=== PATIENT | female | born 1955 | race Caucasian/White ===

== ENCOUNTER → 2021-09-02 | Outpatient (CLI) | payer MEDICARE, OTHER ==
[2021-09-02 09:36] LABS: HCT 44.2 % (34.0-46.0); HGB 14.5 gm/dL (11.4-16.0); MCH 31.2 pg (25.0-35.0); MCHC 32.7 g/dL (31.0-37.0); MCV 95.2 fL (80.0-100.0); Platelet Count 299 k/uL (150-450); RBC 4.64 m/uL (3.80-5.40); RDW 11.8 % (11.5-15.5); WBC 6.4 k/uL (3.8-10.6)
[2021-09-02 09:45] LABS: Partial Thromboplastin Time 23.5 sec (22.0-30.0); Prothrombin Time 10.6 sec (9.0-12.0)
[2021-09-02 10:10] LABS: Albumin 4.3 g/dL (3.5-5.0); Calcium 9.9 mg/dL (8.4-10.2); Potassium 4.3 mmol/L (3.5-5.1); Total Bilirubin 0.7 mg/dL (0.2-1.3); Total Protein 7.4 g/dL (6.3-8.2)
[2021-09-02 10:18] LABS: Appearance,Urine Clear (Clear); Bilirubin,Urine Negative (Negative); Blood,Urine Negative (Negative); Color,Urine Colorless; Glucose,Urine (UA) Negative (Negative); Ketones,Urine Negative (Negative); Leukocyte Esterase,Urine Negative (Negative); Nitrite,Urine Negative (Negative); PH, Urine 6.5 (5.0-8.0); Protein,Urine Negative (Negative); Specific Gravity,Urine 1.005 (1.001-1.035); Urobilinogen,Urine <2.0 mg/dL (<2.0)
== END | disposition home or self-care (01) ==
LOC: LABWHC1 08:46
PROVIDERS: ATTEND Orthopaedic Surgery
DX: Z01.812 Encounter for preprocedural laboratory examination (principal); M16.12 Unilateral primary osteoarthritis, left hip; Z79.01 Long term (current) use of anticoagulants
CPT/HCPCS: 36415; 80053; 81003; 85027; 85610; 85730

== ENCOUNTER 2021-09-13 12:17 | Day surgery (SDC) | payer MEDICARE, OTHER ==
[2021-09-10 14:23] VITALS: BMI 25.4
[~2021-09-13 12:17] MED LIST: ACETAMINOPHEN TAB 500 MG TAB PO PRN; DEXAMETHASONE SOD PHOSPHATE 10 MG/ML 1 ML VIAL IV PRN; DOCUSATE 100 MG CAP PO PRN; FAMOTIDINE 20 MG/2 ML VIAL IVP PRN; KETOROLAC 15 MG/ML 1 ML VIAL IVP PRN; KETOROLAC 30 MG/ML 1 ML VIAL IVP PRN; MIDAZOLAM 2 MG/2 ML VIAL IV PRN; ONDANSETRON 4 MG/2 ML VIAL IVP PRN; TRANEXAMIC ACID 1,000 MG in SODIUM CHLORIDE 0.9% 100 ML IVPB PRN; VANCOMYCIN 1,000 MG in SODIUM CHLORIDE 0.9% 250 ML IVPB PRN; fentaNYL (PF) 50 MCG/ML 2 ML AMP IV PRN; oxyCODONE ER 10 MG TAB.ER.12H PO PRN
[2021-09-13] MEDS: LACTATED RINGERS 1,000 ML IV SCH (12:42)
[2021-09-13] MEDS ORDERED: KETOROLAC 30 MG/ML 1 ML VIAL ONE ×2 (12:47→16:09)
[2021-09-13] MEDS ORDERED: fentaNYL (PF) 50 MCG/ML 2 ML AMP ONE (13:14)
[2021-09-13] MEDS ORDERED: LABETALOL 5 MG/ML VIAL MDV ONE (13:14)
[2021-09-13] MEDS ORDERED: TRANEXAMIC ACID 1,000 MG/10 ML VIAL ONE (13:14)
[2021-09-13] MEDS ORDERED: MIDAZOLAM 2 MG/2 ML VIAL ONE (13:14)
[2021-09-13] MEDS ORDERED: PHENYLEPHRINE-0.9% NACL SYG 1,000 MCG/10 ML SYRINGE ONE (13:14)
[2021-09-13] MEDS ORDERED: NEOSTIGMINE 1 MG/ML 10 ML VIAL ONE (13:14)
[2021-09-13] MEDS ORDERED: PROPOFOL 10 MG/ML 20 ML VIAL IV ONE (13:14)
[2021-09-13] MEDS ORDERED: LIDOCAINE 1% INJ 10MG/ML (20 ML MDV) ONE (13:14)
[2021-09-13] MEDS ORDERED: SUCCINYLCHOLINE CHLORIDE 100 MG/5 ML SYR IV ONE (13:14)
[2021-09-13] MEDS ORDERED: GLYCOPYRROLATE 0.2 MG/ML 2 ML VIAL ONE (13:14)
[2021-09-13] MEDS ORDERED: SODIUM CHLORIDE 0.9% 100 ML BAG ONE (13:14)
[2021-09-13] MEDS ORDERED: ROCURONIUM 10 MG/ML (5 ML VIAL) IV ONE (13:14)
[2021-09-13] MEDS ORDERED: TRANEXAMIC ACID 1,000 MG in SODIUM CHLORIDE 0.9% 100 ML IVPB ONE (13:30)
[2021-09-13] MEDS ORDERED: ROPIVACAINE/EPI/CLONIDINE/KET 50 ML SYRINGE MISCELLANE PRN (13:53)
[2021-09-13] MEDS ORDERED: ceFAZolin 3,000 MG in SODIUM CHLORIDE 0.9% IRRIGATIO 3,000 ML IRRIGATION ONE (15:27)
[2021-09-13] MEDS ORDERED: HYDROmorphone 0.5 MG/0.5 ML SYRINGE IVP PRN ×2 (15:39)
[2021-09-13] MEDS ORDERED: HYDROcodone/APAP 5-325MG 1 EACH TAB PO PRN (15:39)
[2021-09-13] MEDS ORDERED: HYDROmorphone 0.2 MG/1 ML SYRINGE IVP PRN (15:39)
[2021-09-13] MEDS ORDERED: hydrOXYzine pamoate 25 MG CAP PO PRN (15:39)
[2021-09-13] MEDS ORDERED: ONDANSETRON 4 MG/2 ML VIAL IVP PRN (15:39)
[2021-09-13] MEDS ORDERED: NALOXONE 0.4 MG/ML 1 ML VIAL IV PRN (15:39)
[2021-09-13] MEDS ORDERED: LACTATED RINGERS 1,000 ML IV ONE (15:40)
[2021-09-13] MEDS ORDERED: HYDROmorphone 0.5 MG/0.5 ML SYRINGE IVP ONE ×2 (16:10→16:40)
[2021-09-13] MEDS ORDERED: KETOROLAC 15 MG/ML 1 ML VIAL IVP ONE (16:12)
--- NOTE | 2021-09-13 16:36 | P.OP ---
Date of Procedure: 09/13/21 Preoperative Diagnosis: Left hip arthritis Postoperative Diagnosis: Left hip arthritis Procedure(s) Performed: Left direct anterior total hip arthroplasty Implants: 1. [place] Trident II 48-mm cup 2. [place] Accolade II size #4 high offset stem 3. Biolox Delta 36-mm, +0 head Anesthesia: CRISTIA Surgeon: Kana Rodriguez Agricultural Services Director #1: Casimiro Vincent Estimated Blood Loss (ml): 150 IV fluids (ml): 1,200 Pathology: none sent Condition: stable Disposition: PACU Indications for Procedure: The patient is a very pleasant previously healthy 66-year-old female with a long-standing history of left hip arthritis. She failed over 1 year of nonsurgical treatment and presented to my office with severe left hip arthritis on x-rays. We discussed continued nonsurgical treatment versus a direct anterior total hip replacement. The patient having failed a long course of nonsurgical treatment requested going forward with surgery. We discussed the potential risks and competitions of surgery including but certainly not limited to risks from anesthesia, superficial infection, deep periprosthetic joint infection, intraoperative fracture, postoperative fracture, damage to blood vessels or nerves particularly the lateral femoral cutaneous nerve, leg length discrepancy, hip instability, thigh pain, groin pain, tendinitis, need for further surgery, need for revision surgery, continued or worsened pain, DVT, PE, other medical complications, and inability to regain preinjury level of function, and possibly loss of life or limb. The patient voiced understanding these potential complications and also acknowledges the possibility of other less common complications. She provided her verbal and written consent to go forward with surgery. Description of Procedure: Patient identified in preoperative holding and the correct left leg was marked with my initials. I reviewed the consent form with the patient and all of her questions were answered. The patient was then brought back to the operating room. She was positioned on the gurney and a general anesthetic, preoperative antibiotics, and tranexamic acid was given. The skin over the left hip was shaved removing all hair. Her legs were felt to be 1-2 mm short on the left operative side. Web roll was placed over both ankles and the boots for the hand table were applied. The patient was then carefully transferred onto a hand table. She was carefully positioned and all bony prominences were well-padded. A timeout was performed identifying the correct patient, operative extremity, and procedure. Preoperative imaging was taken including an AP pelvis with the hips externally rotated to create a bi-ischial bar to use as an intraoperative referenceto gauge changes in leg length and offset. The left leg was then prepped and draped in the standard sterile fashion. I began by making a longitudinal incision for a direct anterior approach to the hip. Skin incision with a scalpel and dissection was carried down carefully to the subcutaneous tissue. The fascia over the tensor was sharply incised in line with the skin incision. I bluntly developed the interval between the tensor and the sartorius. A blunt tipped cobra was placed superior to the femoral neck. The deep fascia of the tensor was incised and the circumflex vessels were controlled with bipolar sealant. Pre-capsular fat was excised and a second Cobra was placed inferior to the femoral neck. The rectus was elevated off of the anterior capsule and a sharp Hohmann retractor was placed over the anterior acetabulum. The capsule was then teed and the Cobra retractors were placed intracapsularly. A neck cut was marked out and verified with fluoroscopy. A sagittal saw was used to create the neck cut. Traction was applied to the table and the femoral head was removed with a corkscrew. It was passed off to the back table and sized at 45 mm. It appeared severely arthritic. The acetabulum was then circumferentially exposed. Osteophytes were removed. The labrum was excised. The pulp and are was removed identifying the cotyloid fossa. The acetabulum appeared severely arthritic. I then sequentially reamed down to the medial wall and then the rim until a bleeding cancellus bony bed was achieved. Both the anterior and posterior wall were intact. The wound was thoroughly irrigated and a 48 mm cup was gently impacted using fluoroscopy to fine-tune version and inclination. The cup had an excellent bite was augmented with a single screw. The cup was irrigated and a liner was gently tapped into place. Attention was then turned to the femur. Traction was released on the table and the remaining capsule was released to allow safe elevation of the femur. Retractors were placed circumferentially. A box osteotome and blunt tipped canal sound were used to gain entrance into the canal. The patient's bone quality appeared good and I decided to proceed with a press-fit stem. I then sequentially broached up to a size 4 which felt stable. There was an excellent, tight broach envelope. A calcar planar was used to bring the neck cut flush to the broach in line with our templating. A trial head was placed, retractors were removed and the hip was reduced. Fluoroscopy was used to assess position of both the broach and changes in leg length and offset. Once we were happy with our manipulations the hip was dislocated. The femur was once again elevated and retractors were placed. The canal was thoroughly irrigated after the broach was removed. There was an excellent tight broach envelope. The final stem was carefully impacted until it was fully seated and had a tight fit. There was no evidence of any fracture. A final 36 mm +0 head was gently impacted onto the trunnion until the Rodriguez taper was engaged. The acetabulum was irrigated and found to be free of any debris. The hip was reduced and found to be stable on the hand table. Final fluoroscopic images were taken. The wound was then thoroughly irrigated with 3 L of sterile saline and a dilute Betadine soaked for 3 minutes. All bleeders were controlled. A deep drain was placed. The wound was then closed using barbed monofilament sutures creating a watertight seal and closure. The skin was reinforced with Dermabond. A second dose of TXA and was given. A sterile silver a dressing was applied followed by a drain sponge. All instrument, sponge, and sharp counts were correct. Drapes were taken down and the patient was carefully transferred onto a gurney. The Esther table boots were removed and the leg lengths felt equal to 1 mm long on the operative side in line with our planning. The patient was then brought to recovery having tolerated the procedure well. Casimiro Luong PA-C was required as a skilled workforce development assistant due to the complexity of the surgery. Plan: The patient can weight-bear as tolerated on her left leg. She'll receive 2 doses of postoperative antibiotics. Her drain can be removed tomorrow. We will treat her with aspirin for DVT prophylaxis. I anticipate discharge home tomorrow morning.
--- NOTE | 2021-09-13 16:49 | XR ---
EXAMINATION TYPE: XR Hip Complete LT, FL guidance operating room DATE OF EXAM: 09/13/2021 COMPARISON: NONE HISTORY: 66-year-old female total left hip replacement FINDINGS: 8 intraoperative images during left hip total arthroplasty. FLUOROSCOPY Fluoroscopy time of 41 seconds was used during anterior total left hip replacement. 8 image/s docume nt/s the procedure. IMPRESSION: Intraoperative fluoroscopy as above.
[2021-09-13] MEDS ORDERED: ONDANSETRON 4 MG/2 ML VIAL IVP ONE (16:51)
[2021-09-13] MEDS ORDERED: diphenhydrAMINE 50 MG/ML 1 ML VIAL ONE (17:09)
[2021-09-13] MEDS ORDERED: diphenhydrAMINE 50 MG/ML 1 ML VIAL IVP ONE (17:18)
[2021-09-13] MEDS: ASPIRIN 81 MG PO SCH (19:56)
[2021-09-13] MEDS ORDERED: SENNOSIDES-DOCUSATE SODIUM 1 EACH TAB PO SCH (21:00)
[2021-09-14] MEDS: HYDROcodone/APAP 5-325MG 1 EACH TAB PO PRN ×2 (00:26→12:17)
[2021-09-14] MEDS: LACTATED RINGERS 1,000 ML IV SCH (08:42)
[2021-09-14] MEDS: ASPIRIN 81 MG PO SCH (08:43)
[2021-09-14 09:09] VITALS: BP 106/66; PULSE 77; RESP 18; TEMP 98.6
--- NOTE | 2021-09-14 09:31 | P.DS ---
Providers Date of admission: 09/13/2021 Expected date of discharge: 09/14/21 Attending physician: Kana Rodriguez Consults: 09/13/21 15:46 Consult Physician Routine Consulting Provider: Vick Gates Reason/Comments: medical management Do you want consulting provider notified?: Yes Primary care physician: Macey Day - Discharge Diagnosis(es) (1) Osteoarthritis of left hip Current Visit: Yes Status: Acute (2) Status post total hip replacement, left Current Visit: Yes Status: Acute (3) Left hip pain Current Visit: Yes Status: Acute Hospital Course: This is a pleasant 66-year-old female who presented with left hip arthritis who failed outpatient conservative therapy. She was admitted for a left direct anterior total hip arthroplasty. The patient tolerated the procedure well and did well postoperatively. Her left hip pain has been well-controlled. She's been able to ambulate to the restroom the assistance of a walker. Her drain at the left hip had 50 mL of drainage last night. Drain has been removed. Patient feels she is progressing well postoperatively and is ready for discharge home today. Condition on day of discharge stable. Patient was cleared preoperatively for surgery by Dr. Day. Patient currently denies any nausea, vomiting, fever, or chills. Patient is eating and voiding freely without -difficulty. Patient may shower Optifoam dressing intact. Patient may remove Optifoam dressing in 7-10 days and shower without a dressing at that time. Take medications as prescribed. Patient may weight-bear as tolerated on the left lower extremity with use of walker. MAPS was previously reviewed. An "Opiod Start Talking" Form has been signed and placed in the patient's chart. A prescription has been written for Linwood 5 mg/325 mg 1 tablet every 6 hours as needed for pain, dispensed #30. Patient is also given prescription for aspirin 81 mg 1 tab twice a day, dispensed #60 for anticoagulation. Patient should take this prescription until completion. Patient is also given prescriptions for docusate, omeprazole, and Voltaren. Prescriptions have been sent to the [facility] pharmacy located within [facility]. Physical Exam on day of discharge: Status post surgical day number 1 Patient is examined sitting bedside upright in a chair Patient is awake and alert, and oriented 3 Vital signs stable Good chest excursion with deep inspiration and expiration Abdomen soft nontender No signs or symptoms of DVT; no calf pain Lower extremity cuffs not currently in place bilaterally Dressing of the left hip is clean, dry, and intact; no erythema, purulence, or signs of infection Full range of motion of ankles bilaterally Dorsiflexion, plantarflexion, and extensor hallucis longus positive sustained bilaterally Neurovascularly intact bilateral lower extremities Capillary refill less than 2 seconds bilateral lower extremities Drain at the left hip is removed during physical examination Procedures: Left direct anterior total hip arthroplasty Patient Condition at Discharge: Stable Plan - Discharge Summary Discharge Rx Participant: No New Discharge Prescriptions: New HYDROcodone/APAP 5-325MG [Linwood 5-325] 1 tab PO Q6HR PRN 7 Days #30 tab PRN Reason: Pain Aspirin 81 mg PO BID 30 Days #60 tab Docusate [Colace] 100 mg PO BID 30 Days #60 cap Omeprazole 40 mg PO DAILY 30 Days #30 cap Diclofenac Sodium [Voltaren] 75 mg PO BID 30 Days #60 tab No Action Inulin/Chromium Picolinate [Fiber Gummies Chew] 1 tab PO DAILY Ibuprofen [Motrin Ib] 200 - 400 mg PO Q6H PRN PRN Reason: Pain Multivitamins, Thera [Multivitamin (formulary)] 1 tab PO DAILY Krill Oil 500 mg PO DAILY Vitamin B Complex 1 each PO DAILY Cholecalciferol [Vitamin D3 (25 Mcg = 1000 Iu)] 25 mcg PO DAILY Ascorbic Acid/Elderberry Fruit [Elderberry-Vit C 50-100 mg Chw] 1 tab PO DAILY Ascorbic Acid [Vitamin C] 500 mg PO DAILY Mupirocin 2% Oint [Bactroban 2% Oint] 1 applic NASAL TID Discharge Medication List Ascorbic Acid [Vitamin C] 500 mg PO DAILY 09/10/21 [History] Ascorbic Acid/Elderberry Fruit [Elderberry-Vit C 50-100 mg Chw] 1 tab PO DAILY 09/10/21 [History] Cholecalciferol [Vitamin D3 (25 Mcg = 1000 Iu)] 25 mcg PO DAILY 09/10/21 [History] Ibuprofen [Motrin Ib] 200 - 400 mg PO Q6H PRN 09/10/21 [History] Inulin/Chromium Picolinate [Fiber Gummies Chew] 1 tab PO DAILY 09/10/21 [History] Krill Oil 500 mg PO DAILY 09/10/21 [History] Multivitamins, Thera [Multivitamin (formulary)] 1 tab PO DAILY 09/10/21 [History] Mupirocin 2% Oint [Bactroban 2% Oint] 1 applic NASAL TID 09/10/21 [History] Vitamin B Complex 1 each PO DAILY 09/10/21 [History] Aspirin 81 mg PO BID 30 Days #60 tab 09/13/21 [Rx] Diclofenac Sodium [Voltaren] 75 mg PO BID 30 Days #60 tab 09/13/21 [Rx] Docusate [Colace] 100 mg PO BID 30 Days #60 cap 09/13/21 [Rx] HYDROcodone/APAP 5-325MG [Linwood 5-325] 1 tab PO Q6HR PRN 7 Days #30 tab 09/13/21 [Rx] Omeprazole 40 mg PO DAILY 30 Days #30 cap 09/13/21 [Rx] Follow up Appointment(s)/Referral(s): Kana Rodriguez MD [Medical Doctor] - 2 Weeks Activity/Diet/Wound Care/Special Instructions: Weight bear as tolerated on operative leg with a walker. Keep Optifoam dressing in place for 7-10 days. Take pain medications as prescribed. Take aspirin 81mg BID for 4 weeks for blood clot prevention. Follow-up in the office in [address] Rodriguez. Call the office with any questions or concerns, Discharge Disposition: HOME WITH HOME HEALTH SERVICES
--- NOTE | 2021-09-14 15:30 | P.CONS ---
History of Present Illness - Reason for Consult Consult date: 09/14/21 Medical management Requesting physician: Kana Rodriguez - Chief Complaint Left hip surgery - History of Present Illness This is a pleasant 66-year-old patient of Dr. Macey Day. Chronic stable medical conditions include mild GERD, osteoarthritis, occasional urinary incontinence. Patient has undergone left total hip arthroplasty. Patient's pain is better active and she stands up. Did walk around a bit in the room with a walker. No nausea vomiting. Did tolerate her breakfast. No cardiac history. at the bedside. Review of systems: GEN.: None EYES: None HEENT: None NECK: None RESPIRATORY: None CARDIOVASCULAR: None GASTROINTESTINAL: Occasional GERD GENITOURINARY: Occasional UI MUSCULOSKELETAL: Joint pains LYMPHATICS: None HEMATOLOGICAL: None PSYCHIATRY: None NEUROLOGICAL: None Past medical history to include: Ostomy that is, some GERD, UI Social history: . Smoked for 12 years 1 pack a day stopped 14 years ago. Alcohol rarely. Family history: Stroke Physical examination: VITAL SIGNS: 98.6, 77, 18, 10 6 x 66, 93% room air GENERAL: BMI 25.4, sitting up awake. EYES: Pupils equal. Conjunctiva normal. HEENT: External appearance of nose and ears normal, oral cavity grossly normal. NECK: JVD not raised; masses not palpable. HEART: First and second heart sounds are normal; no edema. LUNGS: Respiratory rate normal; clear to auscultation. ABDOMEN: Soft, nontender, liver spleen not palpable, no masses palpable. PSYCH: Alert and oriented x3; mood and affect normal. MUSCULAR skeletal: Dressing over the left hip. Evidence of OA in several joints. NEUROLOGICAL: Cranial nerves grossly intact; no facial asymmetry, power and sensation grossly intact. LYMPHATICS: No lymph nodes palpable in the axilla and neck INVESTIGATIONS, reviewed in the clinical context: Coronavirus: [not detected] [Labs from 09/02/2021]: WBC 6.4 hemoglobin 14.5 platelets 299 potassium 4.3 creatinine 0.8 Assessment and plan: -Left total hip arthroplasty. Aspirin for DVT prophylaxis. Friant for pain control per orthopedics. -Occasional GERD Prilosec 40 mg daily -Primary osteoarthritis multiple joints bilaterally voltaren 75 mg twice a day per orthopedics Care was discussed with the patient has been. Aspirin for DVT prophylaxis. Pain control increased. Activity as tolerated. Follow-up with PCP about discharge. Thank you Dr. Rodriguez Past Medical History Past Medical History: Osteoarthritis (OA) History of Any Multi-Drug Resistant Organisms: None Reported Past Surgical History: Section, Hysterectomy Additional Past Surgical History / Comment(s): Ant TLH 09/13/21 Past Anesthesia/Blood Transfusion Reactions: No Reported Reaction Past Psychological History: No Psychological Hx Reported Smoking Status: Former smoker Past Alcohol Use History: Rare Additional Past Alcohol Use History / Comment(s): quit smoking 14 yrs. ago, smoked for 12 yrs. 1ppd Past Drug Use History: None Reported - Past Family History Mother Family Medical History: CVA/TIA Medications and Allergies Home Medications Medication Instructions Recorded Confirmed Type Ascorbic Acid [Vitamin C] 500 mg PO DAILY 09/10/21 09/10/21 History Ascorbic Acid/Elderberry Fruit 1 tab PO DAILY 09/10/21 09/10/21 History [Elderberry-Vit C 50-100 mg Chw] Cholecalciferol [Vitamin D3 (25 25 mcg PO DAILY 09/10/21 09/10/21 History Mcg = 1000 Iu)] Inulin/Chromium Picolinate [Fiber 1 tab PO DAILY 09/10/21 09/10/21 History Gummies Chew] Krill Oil 500 mg PO DAILY 09/10/21 09/10/21 History Multivitamins, Thera [Multivitamin 1 tab PO DAILY 09/10/21 09/10/21 History (formulary)] Mupirocin 2% Oint [Bactroban 2% 1 applic NASAL TID 09/10/21 09/10/21 History Oint] Vitamin B Complex 1 each PO DAILY 09/10/21 09/10/21 History Aspirin 81 mg PO BID 30 Days #60 tab 09/13/21 Rx Diclofenac Sodium [Voltaren] 75 mg PO BID 30 Days #60 tab 09/13/21 Rx Docusate [Colace] 100 mg PO BID 30 Days #60 cap 09/13/21 Rx HYDROcodone/APAP 5-325MG [Friant 1 tab PO Q6HR PRN 7 Days #30 tab 09/13/21 Rx 5-325] Omeprazole 40 mg PO DAILY 30 Days #30 cap 09/13/21 Rx Allergies Allergy/AdvReac Type Severity Reaction Status Date / Time codeine Allergy Itching Verified 09/10/21 12:39 Penicillins Allergy Itching Verified 09/10/21 12:39 Physical Exam Vitals: Vital Signs Temp Pulse Pulse Resp BP BP Pulse Ox 09/14/21 08:00 98.6 F 77 18 106/66 93 L 09/14/21 03:24 98.3 F 89 15 93/61 94 L 09/13/21 21:36 97.7 F 71 16 114/70 98 09/13/21 17:56 97.5 F L 83 16 124/75 96 09/13/21 17:25 83 16 111/63 100 09/13/21 17:10 75 16 132/66 100 09/13/21 16:55 76 16 136/65 16 L 09/13/21 16:40 78 16 131/66 100 09/13/21 16:25 75 16 126/66 100 09/13/21 16:10 73 16 144/71 100 09/13/21 15:57 99.0 F 90 16 160/79 94 L Intake and Output 09/14/21 09/14/21 09/14/21 06:59 14:59 22:59 Output Total 90 Balance -90 Output: Drainage 90 Left Upper Thigh 90 Other: # Voids 2
== END 2021-09-14 12:42 | disposition home health service (06) ==
LOC: OR 12:17 → 4SSUR 16:50 → OR 09-14 12:42
PROVIDERS: ATTEND Orthopaedic Surgery
DX: M13.852 Other specified arthritis, left hip (principal); Z20.822 Contact with and (suspected) exposure to COVID-19
CPT/HCPCS: 27130; 87635; 73502; C1776; J2250; J3370; J1200; J1100; J2710; J0690 ×2; J2405; J2001; J3010; J1885 ×2; J2370; J0330; J2704; J1170; 86850; 86900; 86901; 88300

== ENCOUNTER 2021-09-14 20:35 | Emergency (ER) | payer MEDICARE, OTHER ==
[2021-09-14 20:59] VITALS: TEMP 99
[2021-09-14] MEDS ORDERED: SODIUM CHLORIDE 0.9% 1,000 ML IV STA (21:21)
[2021-09-14] MEDS ORDERED: ONDANSETRON 4 MG/2 ML VIAL IVP STA (21:21)
[2021-09-14] MEDS ORDERED: FAMOTIDINE 20 MG/2 ML VIAL IV STA (21:22)
--- NOTE | 2021-09-14 21:25 | ED ---
Nausea/Vomiting/Diarrhea HPI - General Chief complaint: Nausea/Vomiting/Diarrhea Stated complaint: Hip replacement surgery 09/13/21-dizzy spells Time Seen by Provider: 09/14/21 21:04 Source: patient, family Mode of arrival: ambulatory Limitations: no limitations - History of Present Illness Initial comments: This patient is a 66-year-old woman who complains that she is not feeling well since she left the hospital early today. The patient had been here following left total hip surgery, with Dr. Rodriguez. The patient reports that after she was home she was feeling nauseated and therefore wasn't taking any of her medications. She was straight would cause vomiting. Patient states she is also feeling dizzy and weak like she was going to pass out. Things were worse if she would attempt to get up. MD complaint: nausea, other (dizzy) Onset/Timin -: hour(s) Associated Abdominal Pain: No Consistency: constant Improves with: none Worsens with: movement Associated Symptoms: nausea/vomiting - Related Data Home Medications Medication Instructions Recorded Confirmed Ascorbic Acid [Vitamin C] 500 mg PO DAILY 09/10/21 09/10/21 Ascorbic Acid/Elderberry Fruit 1 tab PO DAILY 09/10/21 09/10/21 [Elderberry-Vit C 50-100 mg Chw] Cholecalciferol [Vitamin D3 (25 25 mcg PO DAILY 09/10/21 09/10/21 Mcg = 1000 Iu)] Inulin/Chromium Picolinate [Fiber 1 tab PO DAILY 09/10/21 09/10/21 Gummies Chew] Krill Oil 500 mg PO DAILY 09/10/21 09/10/21 Multivitamins, Thera [Multivitamin 1 tab PO DAILY 09/10/21 09/10/21 (formulary)] Mupirocin 2% Oint [Bactroban 2% 1 applic NASAL TID 09/10/21 09/10/21 Oint] Vitamin B Complex 1 each PO DAILY 09/10/21 09/10/21 Previous Rx's Medication Instructions Recorded Aspirin 81 mg PO BID 30 Days #60 tab 09/13/21 Diclofenac Sodium [Voltaren] 75 mg PO BID 30 Days #60 tab 09/13/21 Docusate [Colace] 100 mg PO BID 30 Days #60 cap 09/13/21 HYDROcodone/APAP 5-325MG [Hillister 1 tab PO Q6HR PRN 7 Days #30 tab 09/13/21 5-325] Omeprazole 40 mg PO DAILY 30 Days #30 cap 09/13/21 Ondansetron Odt [Zofran ODT] 4 mg PO Q8HR PRN #10 tab 09/15/21 Allergies Allergy/AdvReac Type Severity Reaction Status Date / Time codeine Allergy Itching Verified 09/14/21 20:59 Penicillins Allergy Itching Verified 09/14/21 20:59 Review of Systems ROS Statement: Those systems with pertinent positive or pertinent negative responses have been documented in the HPI. ROS Other: All systems not noted in ROS Statement are negative. Constitutional: Reports: weakness. Denies: fever, chills Eyes: Denies: vision change Respiratory: Denies: cough, dyspnea Cardiovascular: Denies: chest pain, palpitations, orthopnea, edema, syncope Gastrointestinal: Reports: nausea, constipation. Denies: abdominal pain, vo miting, diarrhea, melena, hematochezia Genitourinary: Denies: dysuria, frequency, hematuria Musculoskeletal: Denies: back pain Skin: Denies: rash Neurological: Denies: headache, weakness, numbness, confusion Past Medical History Past Medical History: Osteoarthritis (OA) History of Any Multi-Drug Resistant Organisms: None Reported Past Surgical History: Section, Hysterectomy, Joint Replacement Additional Past Surgical History / Comment(s): Ant TL 09/13/21 Past Anesthesia/Blood Transfusion Reactions: No Reported Reaction Past Psychological History: No Psychological Hx Reported Smoking Status: Former smoker Past Alcohol Use History: Rare Past Drug Use History: None Reported - Past Family History Mother Family Medical History: CVA/TIA General Exam Limitations: no limitations General appearance: alert, in no apparent distress Head exam: Present: atraumatic, normocephalic Eye exam: Present: normal appearance. Absent: scleral icterus, conjunctival injection Neck exam: Present: normal inspection, full ROM Respiratory exam: Present: normal lung sounds bilaterally. Absent: respiratory distress, wheezes, rales, rhonchi, stridor Cardiovascular Exam: Present: regular rate, normal rhythm, normal heart sounds. Absent: systolic murmur, diastolic murmur, rubs, gallop GI/Abdominal exam: Present: soft. Absent: distended, tenderness, guarding, rebound, rigid, mass Extremities exam: Present: normal inspection, normal capillary refill. Absent: pedal edema, calf tenderness Back exam: Present: normal inspection. Absent: CVA tenderness (R), CVA tenderness (L) Neurological exam: Present: alert Skin exam: Present: warm, dry, intact, normal color. Absent: rash Course Vital Signs 09/14/21 09/14/21 20:55 21:16 Temperature 99 F Pulse Rate 99 90 Respiratory 22 22 Rate Blood Pressure 98/62 121/66 O2 Sat by Pulse 97 97 Oximetry Medical Decision Making - Lab Data Result diagrams: 09/14/21 21:34 09/14/21 21:34 Lab Results 09/14/21 09/14/21 09/14/21 Range/Units 21:34 21:34 23:14 WBC 11.9 H (3.8-10.6) k/uL RBC 3.79 L (3.80-5.40) m/uL Hgb 11.8 (11.4-16.0) gm/dL Hct 34.7 (34.0-46.0) % MCV 91.6 (80.0-100.0) fL MCH 31.3 (25.0-35.0) pg MCHC 34.1 (31.0-37.0) g/dL RDW 12.5 (11.5-15.5) % Plt Count 251 (150-450) k/uL MPV 6.9 Neutrophils % 86 % Lymphocytes % 10 % Monocytes % 4 % Eosinophils % 0 % Basophils % 0 % Neutrophils # 10.2 H (1.3-7.7) k/uL Lymphocytes # 1.1 (1.0-4.8) k/uL Monocytes # 0.5 (0-1.0) k/uL Eosinophils # 0.0 (0-0.7) k/uL Basophils # 0.0 (0-0.2) k/uL Sodium 133 L (137-145) mmol/L Potassium 4.1 (3.5-5.1) mmol/L Chloride 105 (98-107) mmol/L Carbon Dioxide 22 (22-30) mmol/L Anion Gap 6 mmol/L BUN 17 (7-17) mg/dL Creatinine 0.68 (0.52-1.04) mg/dL Est GFR (CKD-EPI)AfAm >90 (>60 ml/min/1.73 sqM) Est GFR (CKD-EPI)NonAf >90 (>60 ml/min/1.73 sqM) Glucose 138 H (74-99) mg/dL Calcium 8.7 (8.4-10.2) mg/dL Total Bilirubin 0.7 (0.2-1.3) mg/dL AST 54 H (14-36) U/L ALT 21 (4-34) U/L Alkaline Phosphatase 77 (38-126) U/L Total Protein 5.9 L (6.3-8.2) g/dL Albumin 3.3 L (3.5-5.0) g/dL Amylase 53 (30-110) U/L Lipase 60 (23-300) U/L Urine Color Light Yellow Urine Appearance Clear (Clear) Urine pH 6.0 (5.0-8.0) Ur Specific [place] 1.004 (1.001-1.035) Urine Protein Negative (Negative) Urine Glucose (UA) Negative (Negative) Urine Ketones Trace H (Negative) Urine Blood Negative (Negative) Urine Nitrite Negative (Negative) Urine Bilirubin Negative (Negative) Urine Urobilinogen <2.0 (<2.0) mg/dL Ur Leukocyte Esterase Negative (Negative) - EKG Data EKG shows normal: sinus rhythm (Rate 92 BPM), axis (Normal), intervals (Normal), QRS complexes (Normal), ST-T waves (Normal) Rate: normal Interpretation: normal EKG Disposition Clinical Impression: Nausea & vomiting Disposition: HOME SELF-CARE Condition: Good Instructions (If sedation given, give patient instructions): Acute Nausea and Vomiting (ED) Prescriptions: Ondansetron Odt [Zofran ODT] 4 mg PO Q8HR PRN #10 tab PRN Reason: Nausea Is patient prescribed a controlled substance at d/c from ED?: No Referrals: Macey Day MD [Primary Care Provider] - 1-2 days
[2021-09-14 21:57] LABS: ALT 21 U/L (4-34); AST 54 U/L (14-36); African American GFR (CKD) >90 (>60 ml/min/1.73 sqM); Albumin 3.3 g/dL (3.5-5.0); Alkaline Phosphatase 77 U/L (38-126); Amylase 53 U/L (30-110); Anion Gap 6 mmol/L; Blood Urea Nitrogen 17 mg/dL (7-17); Calcium 8.7 mg/dL (8.4-10.2); Carbon Dioxide 22 mmol/L (22-30); Chloride 105 mmol/L (98-107); Glucose 138 mg/dL (74-99); Lipase 60 U/L (23-300); Non-African American GFR(CKD) >90 (>60 ml/min/1.73 sqM); Potassium 4.1 mmol/L (3.5-5.1); Sodium 133 mmol/L (137-145); Total Bilirubin 0.7 mg/dL (0.2-1.3); Total Protein 5.9 g/dL (6.3-8.2)
[2021-09-14 22:15] LABS: Basophils % (A) 0 %; Eosinophils % (A) 0 %; HCT 34.7 % (34.0-46.0); HGB 11.8 gm/dL (11.4-16.0); Lymphocytes # (A) 1.1 k/uL (1.0-4.8); Lymphocytes % (A) 10 %; MCH 31.3 pg (25.0-35.0); MCHC 34.1 g/dL (31.0-37.0); MCV 91.6 fL (80.0-100.0); Mean Platelet Volume 6.9; Monocytes # (A) 0.5 k/uL (0-1.0); Monocytes % (A) 4 %; Neutrophils # (A) 10.2 k/uL (1.3-7.7); Neutrophils % (A) 86 %; Platelet Count 251 k/uL (150-450); RBC 3.79 m/uL (3.80-5.40); RDW 12.5 % (11.5-15.5); WBC 11.9 k/uL (3.8-10.6)
[2021-09-14 23:38] LABS: Appearance,Urine Clear (Clear); Bilirubin,Urine Negative (Negative); Blood,Urine Negative (Negative); Color,Urine Light Yellow; Glucose,Urine (UA) Negative (Negative); Ketones,Urine Trace (Negative); Leukocyte Esterase,Urine Negative (Negative); Nitrite,Urine Negative (Negative); Protein,Urine Negative (Negative); Specific Gravity,Urine 1.004 (1.001-1.035); Urobilinogen,Urine <2.0 mg/dL (<2.0)
[2021-09-15 00:27] VITALS: BP 115/60; PULSE 92; RESP 18
[2021-09-15] MEDS ORDERED: ONDANSETRON 4 MG ODT STARTER PACK 2 TAB BTL PO STA (00:31)
== END 2021-09-14 21:15 | disposition home or self-care (01) ==
LOC: EC 20:35
DX: R11.2 Nausea with vomiting, unspecified (principal); M19.90 Unspecified osteoarthritis, unspecified site; Z79.4 Long term (current) use of insulin; Z79.82 Long term (current) use of aspirin; Z88.0 Allergy status to penicillin; Z88.5 Allergy status to narcotic agent; Z90.710 Acquired absence of both cervix and uterus; Z87.891 Personal history of nicotine dependence
CPT/HCPCS: 99284; 96374; 96375; 96361; 36415; 93005; 97162; 80053; 82150; 83690; 85025; 81003; J0690; J2405

== ENCOUNTER → 2021-09-16 | Outpatient (CLI) | payer MEDICARE, OTHER ==
--- NOTE | 2021-09-16 14:04 | US ---
EXAMINATION TYPE: US venous doppler duplex LE LT DATE OF EXAM: 09/16/2021 1:23 PM COMPARISON: NONE CLINICAL HISTORY: 66-year-old female M25.552 Pain in left hip. Left hip replacement 09/13/21 with lef t leg pain SIDE PERFORMED: Left TECHNIQUE: The lower extremity deep venous system is examined utilizing real time linear array sonog lawrence with graded compression, doppler sonography and color-flow sonography. FINDINGS: VESSELS IMAGED: Common Femoral Vein Deep Femoral Vein Greater Saphenous Vein * Femoral Vein Popliteal Vein Small Saphenous Vein * Proximal Calf Veins (* superficial vessels) Left Leg: Negative for DVT IMPRESSION: No evidence for DVT within the left lower extremity imaged from the groin to the upper calf.
== END | disposition home or self-care (01) ==
LOC: RADUSWWP 12:50
PROVIDERS: ATTEND Orthopaedic Surgery
DX: M25.552 Pain in left hip (principal); M79.605 Pain in left leg

== ENCOUNTER → 2023-09-03 | Outpatient (CLI) | payer MEDICARE, OTHER ==
[2023-09-03 14:25] LABS: Prothrombin Time 10.9 sec (10.0-12.5)
[2023-09-03 21:12] LABS: Appearance,Urine Clear (Clear); Bilirubin,Urine Negative (Negative); Blood,Urine Negative (Negative); Color,Urine Yellow (Yellow); Ketones,Urine Trace (Negative); Nitrite,Urine Negative (Negative); PH, Urine 6.5; Specific Gravity,Urine 1.003 (1.001-1.030); Urobilinogen,Urine 0.2 E.U./DL
[2023-09-03 21:36] LABS: ALT 15 U/L (8-44); AST 22 U/L (13-35); Albumin 4.5 g/dL (3.8-4.9); Albumin/Globulin Ratio 1.88 Ratio (1.60-3.17); Alkaline Phosphatase 121 U/L (41-126); Blood Urea Nitrogen 16.4 mg/dL (9.0-27.0); Calcium 10.1 mg/dL (8.7-10.3); Carbon Dioxide 24.3 mmol/L (21.6-31.8); Chloride 104 mmol/L (96-109); Globulin 2.4 g/dL (1.6-3.3); Glucose 95 mg/dL (70-110); Potassium 4.9 mmol/L (3.5-5.5); Sodium 140 mmol/L (135-145); Total Bilirubin 0.7 mg/dL (0.3-1.2); Total Protein 6.9 g/dL (6.2-8.2)
[2023-09-03 21:51] LABS: HCT 43.9 % (37.2-46.3); HGB 14.4 g/dL (12.0-15.0); MCH 30.7 pg (27.0-32.0); MCHC 32.8 g/dL (32.0-37.0); MCV 93.6 FL (80.0-97.0); Mean Platelet Volume 9.7 FL (9.5-12.2); NRBC Per 100 WBC 0 X 10*3/uL (0.00-0.01); Platelet Count 318 X 10*3/uL (140-440); RBC 4.69 X 10*6/uL (4.10-5.20); RDW 12.5 % (11.5-14.5); WBC 8.66 X 10*3/uL (4.50-10.00)
== END | disposition home or self-care (01) ==
LOC: LABWHC1 12:11
PROVIDERS: ATTEND Orthopaedic Surgery
DX: Z01.812 Encounter for preprocedural laboratory examination (principal); M16.11 Unilateral primary osteoarthritis, right hip
CPT/HCPCS: 36415; 80053; 81003; 85027; 85610; 85730; 86850; 86900; 86901; 87070

== ENCOUNTER 2023-09-09 11:07 | Inpatient (IN) | payer MEDICARE, OTHER ==
[2023-09-03 16:28] VITALS: BMI 25.4
[~2023-09-09 11:07] MED LIST changes: -KETOROLAC 30 MG/ML 1 ML VIAL IVP PRN; -MIDAZOLAM 2 MG/2 ML VIAL IV PRN; +TRANEXAMIC 1,000 MG/100ML-NACL 1,000 MG in SALINE 1 100ML.BAG IV PRN; +TRANEXAMIC 1,000 MG/100ML-NACL 1,000 MG in SALINE 1 100ML.BAG IVPB PRN; -TRANEXAMIC ACID 1,000 MG in SODIUM CHLORIDE 0.9% 100 ML IVPB PRN; -VANCOMYCIN 1,000 MG in SODIUM CHLORIDE 0.9% 250 ML IVPB PRN
[2023-09-09] MEDS: LACTATED RINGERS 1,000 ML IV SCH (11:50)
[2023-09-09] MEDS ORDERED: GLYCOPYRROLATE 0.2 MG/ML 2 ML VIAL ONE (12:55)
[2023-09-09] MEDS ORDERED: PHENYLEPHRINE-0.9% NACL SYG 1,000 MCG/10 ML SYRINGE ONE (12:55)
[2023-09-09] MEDS ORDERED: SUCCINYLCHOLINE CHLORIDE 200 MG/10 ML VIAL IV ONE (12:55)
[2023-09-09] MEDS ORDERED: TRANEXAMIC 1,000 MG/100ML-NACL PREMIX BAG ONE (12:55)
[2023-09-09] MEDS ORDERED: MIDAZOLAM 2 MG/2 ML VIAL ONE (12:55)
[2023-09-09] MEDS ORDERED: PROPOFOL 10 MG/ML 20 ML VIAL IV ONE (12:55)
[2023-09-09] MEDS ORDERED: NEOSTIGMINE 1 MG/ML 10 ML VIAL ONE (12:55)
[2023-09-09] MEDS ORDERED: ROCURONIUM 10 MG/ML (5 ML VIAL) IV ONE (12:55)
[2023-09-09] MEDS ORDERED: KETAMINE HCL IN 0.9 % NACL 50 MG/5 ML SYRINGE ONE (12:55)
[2023-09-09] MEDS ORDERED: fentaNYL (PF) 50 MCG/ML 2 ML AMP ONE (12:55)
[2023-09-09] MEDS: ROPIVACAINE/EPI/CLONIDINE/KET 50 ML SYRINGE MISCELLANE PRN ×2 (13:40→15:00)
[2023-09-09] MEDS ORDERED: LACTATED RINGERS 1,000 ML IV ONE (14:11)
[2023-09-09] MEDS ORDERED: HYDROmorphone 0.5 MG/0.5 ML SYRINGE IVP PRN (15:33)
[2023-09-09] MEDS ORDERED: HYDROcodone/APAP 10-325MG 1 EACH TAB PO PRN (15:33)
[2023-09-09] MEDS ORDERED: NALOXONE 0.4 MG/ML 1 ML VIAL IV PRN (15:33)
[2023-09-09] MEDS ORDERED: hydrOXYzine pamoate 25 MG CAP PO PRN (15:33)
[2023-09-09] MEDS ORDERED: diazePAM 5 MG TAB PO PRN (15:33)
[2023-09-09] MEDS ORDERED: MAGNESIUM HYDROXIDE 2,400 MG/30 ML CUP PO PRN (15:33)
--- NOTE | 2023-09-09 15:41 | P.OP ---
Date of Procedure: 09/09/23 Preoperative Diagnosis: Severe right hip osteoarthritis Postoperative Diagnosis: Same Procedure(s) Performed: Right direct anterior total hip arthroplasty Implants: 1. Barbara Trident II Acetabular Cup, Size #48 2. Barbara Insignia Size # 5 Femoral Stem, High Offset 3. Biolox delta femoral head, 36 mm, -5mm neck Anesthesia: PATTI, regional Surgeon: Kana Rodriguez Estimated Blood Loss (ml): 300 IV fluids (ml): 850 Pathology: none sent Condition: stable Disposition: PACU Indications for Procedure: I had a long discussion with the patient in the office on the potential risks and complications of an elective total hip replacement through a direct anterior approach. Risks discussed include, but are certainly not limited to, risks from anesthesia, superficial infection requiring local wound care or antibiotics, deep aleisha-prosthetic joint infection and the treatment required to eradicate infection, intraoperative fracture, postoperative periprosthetic fracture, damage to local blood vessels or nerves particularly the lateral femoral cutaneous nerve, delayed wound healing requiring local wound care or possibly surgical debridement, hip dislocation, leg length discrepancy, soft tissue irritation around the total hip implant such as iliopsoas tendinitis or trochanteric bursitis, wear and osteolysis from the implants, squeaking or audible noises, groin pain, thigh pain, heterotopic ossification, stiffness, aseptic loosening of the implants, dissatisfaction with surgical outcome, need for revision surgery, DVT, PE, swelling of the operative extremity, acute coronary event, stroke, failure to thrive, and possibly loss of life or limb. The patient understands that while these are the most common complications after an elective hip replacement there are certainly other less common complications possible. They were given ample time to ask questions regarding the potential complications of a hip replacement. Following our discussion the patient provided their verbal and written consent to go forward with an elective total hip replacement. Operative Findings: Severe right hip past arthritis Description of Procedure: The patient was identified in the preoperative holding area and the correct hip was marked with my initials. I reviewed the procedure and consent with the patient. All of their questions were answered. The patient was then brought back into the operating room by anesthesia. While on the [facility] anesthesia was administered by the anesthesia team. Preoperative antibiotics and tranexamic acid were also given. After the patient was under anesthesia I examined their ankles to determine their preoperative leg length discrepancy. The skin over the anterior aspect of the hip was shaved to remove hair over the site of planned incision. Both feet and ankles were padded with webril and boots for the Valdez were applied. The patient was then carefully transferred onto the Valdez table. A perineal post was immediately placed. The arms were placed on arm holders and were well-padded. Both boots were secured to the spars on the Valdez table. The patient was positioned so that the pelvis was centered over the post. Nonsterile drapes were applied. A timeout was performed identifying the correct patient, operative extremity, and procedure. At this point fluoroscopy was brought in to take preoperative images of the pelvis and operative hip. Using the standing AP pelvis from the office as a template, a comparable image was obtained with fluoroscopy. A metallic bar was used to create a bi-ischial line for use as a reference to leg length adjustments during the procedure. Global offset was also measured on both the operative and nonoperative leg. Fluoroscopy was then brought out and a pre-scrub using a chlorhexidine scrub brush was performed. The operative limb was then prepped and draped in the standard sterile fashion. An anterior longitudinal incision was made lateral and distal to the ASIS. The skin and subcutaneous tissues were incised sharply. The underlying tensor fascia was identified and incised in its midportion. The fascia was dissected free from the underlying muscle and the muscle belly was retracted. A blunt tipped cobra retractor was placed over the superior neck under the muscle fibers of the gluteus minimus. The deep enveloping fascia of the tensor was incised. The anterior leash of vessels were then identified and cauterized. The fascia between the rectus and the capsule was then incised and the pre-capsular fat was excised. A second Cobra was placed inferior to the neck. The interval between the rectus and iliocapsularis and the hip capsule was developed and a retractor was placed carefully over the anterior rim of the acetabulum. A T-shaped anterior capsulotomy was performed. The superior capsular leaflet was left in place in the inferior capsular flap was excised. The Cobra retractors were placed intracapsularly. We then made a femoral neck osteotomy according to preoperative and intraoperative templating and confirmed the level of the osteotomy using fluoroscopic imaging. The femoral head was removed, passed off to the back table, and sized. The superior capsular flap was excised. Retractors were placed circumferentially exposing the acetabulum. We then circumferentially debrided the acetabulum free of labrum and osteophytes. The pulvinar was removed to fully visualize the cotyloid fossa. We then sequentially reamed to achieve peripheral fit and excellent bleeding subchondral bone. The socket was thoroughly irrigated. The acetabular component was impacted into the appropriate position using fluoroscopy to guide version, inclination, and depth of insertion taking care to have a comparable image of the AP pelvis to the standing image taken in the office. An excellent press-fit was achieved and final position was confirmed using fluoroscopy. The press fit was augmented with bony cancellus dome screws. The liner was then impacted into the socket. Attention was then turned to the femur. The remnant dorsal lateral capsule was excised. The short external rotators were visible and protected. A bone hook was used to confirm appropriate translation of the trochanter away from the acetabulum. The leg was then extended and adducted and the bone hook was used to elevate the femur for broaching. A box osteotome and blunt tipped canal sound was then utilized to gain access to the femoral canal. We then sequentially broached the femur in appropriate anteversion until excellent torsional stability was achieved. The neck cut was brought flush to the trial broach with a calcar planar. A trial neck and head were then placed onto the broach and the hip was atraumatically reduced under direct visualization. External rotation to 90 was performed to assess stability. Fluoroscopy was brought in. An AP and lateral fluoroscopic image of the proximal femur was obtained to assess position and fill of the trial broach. An AP of the pelvis was then obtained and matched to the preoperative image taken. A bi-ischial bar was then placed and measurements were taken to assess changes in length and offset. The hip was then carefully dislocated, the proximal femur was exposed, and the trial implants were removed. The wound and proximal femur was thoroughly irrigated using sterile saline and pulsatile lavage. The final femoral implant was dispensed and gently tapped into place generating an excellent press-fit. The trunnion was cleansed and the final head was tapped into place to engage the Rodriguez taper. The acetabulum was irrigated and visualized to be free of debris. The hip was carefully reduced. Stability was checked clinically with external rotation to 90 and there was no evidence of instability. Final fluoroscopic images were taken. The wound was then thoroughly irrigated and soaked with a dilute Betadine rinse for 3 minutes. 3 L of sterile saline was irrigated through the wound using pulsatile lavage. Local anesthetic cocktail was injected into the soft tissues around the surgical field. A deep drain was placed. The wound was then closed in layers. A sterile dressing was placed over the surgical incision and drain site. The drapes were taken down and the patient was carefully transferred off of the Valdez table. Following removal of the boots the leg lengths felt acceptable. The patient was then taken to recovery room having tolerated the procedure well. . PLAN: The patient can weight-bear as tolerated on the operative extremity. 2 doses of postoperative antibiotics. DVT prophylaxis with aspirin 81 mg twice a day based on preoperative risk stratification. Physical therapy for gait training. Discontinue drain postoperative day #1 if output is less than 100 mL per shift.
--- NOTE | 2023-09-09 15:59 | FL ---
Fluoroscopy INDICATION: Anterior right hip, pain FINDINGS: Fluoroscopy time: 59 seconds. Total dose area product (DAP) in uGy*m?, mGy*cm? (or similar): 1.7362 Images obtained: 0. IMPRESSION: 1. Documentation of fluoroscopy.
--- NOTE | 2023-09-09 16:01 | XR ---
Fluoroscopy INDICATION: Hip replacement FINDINGS: Fluoroscopy time: 59 seconds. Total dose area product (DAP) in uGy*m?, mGy*cm? (or similar): 1.7362 Images obtained: 11. IMPRESSION: 1. Documentation of fluoroscopy.
[2023-09-09] MEDS ORDERED: ONDANSETRON 4 MG/2 ML VIAL IVP ONE (16:39)
[2023-09-09] MEDS ORDERED: ONDANSETRON 4 MG/2 ML VIAL IVP PRN (19:09)
[2023-09-09] MEDS: SODIUM CHLORIDE 0.9% 1,000 ML IV SCH (20:22)
[2023-09-09] MEDS: ASPIRIN 81 MG PO SCH (20:25)
[2023-09-09] MEDS: SENNOSIDES-DOCUSATE SODIUM 1 EACH TAB PO SCH (20:25)
--- NOTE | 2023-09-09 21:46 | P.CONS ---
History of Present Illness - Reason for Consult Consult date: 09/09/23 Medical management Requesting physician: Kana Rodriguez - Chief Complaint Right hip surgery - History of Present Illness This is a pleasant 68-year-old patient follows with Dr. Macey Day. Patient's had arthritis in the joints for some time. Progressively getting worse. Has tried conservative measures that were exhausted.. Finally decided to proceed for surgery.. Postprocedure patient is having some nausea. Some local pain is present. Hemovac in place. No chest pain or short of breath. Otherwise patient is rather good health. Review of systems: GEN.: None EYES: None HEENT: None NECK: None RESPIRATORY: None CARDIOVASCULAR: None GASTROINTESTINAL: Nausea GENITOURINARY: None MUSCULOSKELETAL: Joint pains LYMPHATICS: None HEMATOLOGICAL: None PSYCHIATRY: None NEUROLOGICAL: None Social history: 1 pack a day for about 12 this document was 16 years ago. Alcohol rarely. Lives with Manuel Physical examination: VITAL SIGNS: 97.5, 62, 16, 113 with 71, 93% room air GENERAL: BMI 25.9, laying in bed tired. EYES: Pupils equal. Conjunctiva normal. HEENT: External appearance of nose and ears normal, oral cavity grossly normal. NECK: JVD not raised; masses not palpable. HEART: First and second heart sounds are normal; no edema. LUNGS: Respiratory rate normal; clear to auscultation. ABDOMEN: Soft, nontender, liver spleen not palpable, no masses palpable. PSYCH: Alert and oriented x3; mood and affect normal. MUSCULOSKELETAL:No Clubbing/cyanosis;muscles-grossly intact. OA. Hemovac in the right hip. Dressing over incision site NEUROLOGICAL: Cranial nerves grossly intact; no facial asymmetry, power and sensation grossly intact. LYMPHATICS: No lymph nodes palpable in the axilla and neck INVESTIGATIONS, reviewed in the clinical context: 09/03/2023: White count 8.6 hemoglobin 14.4 platelets 318 sodium 140 potassium 4.9 creatinine 0.8 Assessment and plan: -Right total hip arthroplasty Aspirin for DVT prophylaxis. IV cefazolin for infection prophylaxis. Pain control -Primary osteoarthritis Tylenol as needed -Nausea as a side effect of pain medications postprocedure Antiemetics as needed Care was discussed with the patient. Questions answered. Thank you Dr. Rodriguez Past Medical History Past Medical History: Musculoskeletal Disorder, Osteoarthritis (OA) Additional Past Medical History / Comment(s): Osteoporosis. History of Any Multi-Drug Resistant Organisms: None Reported Past Surgical History: Section, Hysterectomy, Joint Replacement Additional Past Surgical History / Comment(s): Anterior total left hip replacement 09/13/21. Past Anesthesia/Blood Transfusion Reactions: No Reported Reaction Past Psychological History: No Psychological Hx Reported Smoking Status: Former smoker Past Alcohol Use History: Rare Additional Past Alcohol Use History / Comment(s): Quit smoking 16 yrs ago, smoked for 12 yrs, 1ppd. Past Drug Use History: None Reported - Past Family History Mother Family Medical History: CVA/TIA Medications and Allergies Home Medications Medication Instructions Recorded Confirmed Type Cholecalciferol [Vitamin D3 (25 25 mcg PO DAILY 09/10/21 09/09/23 History Mcg = 1000 Iu)] Krill Oil 500 mg PO DAILY 09/10/21 09/09/23 History Collagen Peptides (Unknown Dose) 1 dose PO DAILY 09/03/23 09/09/23 History Multivit with Calcium,Iron,Min 0.5 each PO DAILY 09/03/23 09/09/23 History [Women's Multivitamin] Turmeric (Unknown Dose) 1 tab PO DAILY 09/03/23 09/09/23 History Vitamin B-12 (Unknown Dose) 1 tab PO DAILY 09/03/23 09/09/23 History Allergies Allergy/AdvReac Type Severity Reaction Status Date / Time codeine Allergy Itching Verified 09/09/23 11:48 Penicillins Allergy Itching Verified 09/09/23 11:48 Physical Exam Vitals: Vital Signs Temp Pulse Resp BP Pulse Ox 09/09/23 20:00 62 18 09/09/23 19:03 71 118/75 93 L 09/09/23 18:48 64 115/70 96 09/09/23 18:33 65 115/69 97 09/09/23 18:18 81 103/67 94 L 09/09/23 18:03 62 113/71 93 L 09/09/23 17:48 74 105/69 93 L 09/09/23 17:33 69 115/70 95 09/09/23 17:22 63 122/74 95 09/09/23 17:07 97.5 F L 65 18 123/72 94 L 09/09/23 16:45 64 16 119/61 96 09/09/23 16:30 65 16 116/60 95 09/09/23 16:15 65 16 125/61 100 09/09/23 16:00 69 16 130/62 100 09/09/23 15:45 82 16 150/64 100 09/09/23 15:30 97.9 F 78 14 145/65 100 09/09/23 12:16 98 F 95 156/95 98 Intake and Output 09/09/23 09/09/23 09/09/23 06:59 14:59 22:59 Intake Total 1150 200 Output Total 300 Balance 1150 -100 Intake: IV 1150 200 Output: Estimated Blood Loss 300 Other: Weight 60.2 kg 60.2 kg
[2023-09-10] MEDS: SODIUM CHLORIDE 0.9% 1,000 ML IV SCH ×3 (01:55→22:31)
--- NOTE | 2023-09-10 07:51 | P.PN ---
Subjective Progress Note Date: 09/10/23 Patient was seen and evaluated at bedside this morning. She is complaining of mild pain in the right hip but otherwise her pain is controlled. She's had some issues with nausea overnight which is improved with Zofran. Her main concern this morning is that her blood pressure is low. She denies chest pain or shortness of breath. She has no other complaints. She was up with a walker last night and did relatively well going to the bathroom. Objective - Vital Signs Vital signs: Vital Signs Temp 98.2 F 09/10/23 01:17 Pulse 71 09/10/23 01:17 Resp 16 09/10/23 01:17 BP 108/60 09/10/23 01:17 Pulse Ox 94 L 09/10/23 01:17 FiO2 Intake & Output 09/09/23 09/10/23 09/10/23 18:59 06:59 18:59 Intake Total 1350 480 Output Total 300 Balance 1050 480 Weight 60.2 kg Intake: IV 1350 Oral 480 Output: Estimated Blood Loss 300 Other: # Voids 1 - Exam The patient is resting comfortably in her bed. She is alert and able to answer questions. A focused exam of the right lower extremity was conducted. On inspection she has a clean surgical dressing over the anterior aspect of the right hip with no drainage or strike through. Her Hemovac was in place and removed without difficulty. Her thigh is soft. Femoral nerve function is intact. She is able to actively dorsiflex and plantarflex her ankle and her toes. Assessment and Plan Assessment: Operative day #1 status post right direct anterior total hip arthroplasty Plan: 1. Weight bear as tolerated right lower extremity, up with assistance and walker 2. 2 doses postoperative antibiotics 3. DVT prophylaxis with aspirin 81 mg twice a day 4 weeks 4. Appreciate internal medicine's plastic surgery assistant with preoperative medical management 5. Physical therapy for gait training 6. Dispo: We'll plan on keeping the patient another night due to her nausea and hypotension. She also returned to the ER after her contralateral hip replacement on postoperative day #2 due to hypotension and we want to avoid this If she continues to have hypotension we will give her an IV fluid bolus. We'll see how she does today. If she does well and wants to go home that is okay, but we will plan on keeping her until tomorrow
[2023-09-10] MEDS: LACTATED RINGERS 1,000 ML IV SCH (08:03)
[2023-09-10 08:25] LABS: Basophils # (A) 0.01 X 10*3/uL (0.00-0.10); Basophils % (A) 0.1 %; Eosinophils # (A) 0 X 10*3/uL (0.04-0.35); Eosinophils % (A) 0 %; HCT 31.1 % (37.2-46.3); HGB 10.2 g/dL (12.0-15.0); Lymphocytes # (A) 1.55 X 10*3/uL (0.90-5.00); Lymphocytes % (A) 12.6 %; MCH 30.8 pg (27.0-32.0); MCHC 32.8 g/dL (32.0-37.0); Monocytes # (A) 0.82 X 10*3/uL (0.20-1.00); Monocytes % (A) 6.6 %; NRBC Per 100 WBC 0 X 10*3/uL (0.00-0.01); Neutrophils % (A) 80.1 %; Platelet Count 224 X 10*3/uL (140-440); RBC 3.31 X 10*6/uL (4.10-5.20); RDW 12.7 % (11.5-14.5); WBC 12.35 X 10*3/uL (4.50-10.00)
[2023-09-10] MEDS: MULTIVITAMINS, THERA 1 EACH TAB PO SCH (09:50)
[2023-09-10] MEDS: ASPIRIN 81 MG PO SCH ×2 (09:50→21:26)
[2023-09-10] MEDS ORDERED: SODIUM FERRIC GLUCONAT-SUCROSE 125 MG in SODIUM CHLORIDE 0.9% 100 ML IVPB ONE (12:00)
[2023-09-10] MEDS: HYDROcodone/APAP 5-325MG 1 EACH TAB PO PRN ×2 (15:49→22:30)
[2023-09-10] MEDS: SENNOSIDES-DOCUSATE SODIUM 1 EACH TAB PO SCH (21:26)
[2023-09-10 21:27] VITALS: RESP 17
--- NOTE | 2023-09-10 23:30 | P.PN ---
Progress Note - Text Progress Note Date: 09/10/23 - Chief Complaint Right hip surgery - History of Present Illness This is a pleasant 68-year-old patient follows with Dr. Macey Day. Patient's had arthritis in the joints for some time. Progressively getting worse. Has tried conservative measures that were exhausted.. Finally decided to proceed for surgery.. Postprocedure patient is having some nausea. Some local pain is present. Hemovac in place. No chest pain or short of breath. Otherwise patient is rather good health. September 10: Some pain at the operative site. Hemovac was removed. Drop in hemoglobin. IV Ferrlecit ordered. Diet discussed. Did work with therapy. Active Medications Hydrocodone Bitart/Acetaminophen (Hydrocodone/Apap 5-325mg 1 Each Tab) 1 each PO Q6HR PRN PRN Reason: Pain Scale 1 to 5 Stop: 10/09/23 15:34 Last Admin: 09/10/23 22:30 Dose: 1 each Hydrocodone Bitart/Acetaminophen (Hydrocodone/Apap 10-325mg 1 Each Tab) 1 each PO Q6H PRN PRN Reason: Pain Scale 6 to 10 Stop: 10/09/23 15:34 Aspirin (Aspirin 81 Mg) 81 mg PO BID BINDU Stop: 10/09/23 21:01 Last Admin: 09/10/23 21:26 Dose: 81 mg Diazepam (Diazepam 5 Mg Tab) 2.5 mg PO Q8HR PRN PRN Reason: Mild Spasms Stop: 10/09/23 15:34 Hydromorphone HCl (Hydromorphone 0.5 Mg/0.5 Ml Syringe) 0.5 mg IVP Q3HR PRN PRN Reason: Pain Scale 7 to 10 Stop: 10/09/23 15:34 Hydroxyzine Pamoate (Hydroxyzine Pamoate 25 Mg Cap) 25 mg PO Q4HR PRN PRN Reason: Nausea, Anxiety, Pain Control Stop: 10/09/23 15:34 Lactated Ringer's (Lactated Ringers) 1,000 mls @ 20 mls/hr IV .Q24H BINDU Stop: 10/09/23 07:11 Last Admin: 09/10/23 08:03 Dose: Not Given Sodium Chloride (Saline 0.9%) 1,000 mls @ 100 mls/hr IV .Q10H BINDU Stop: 10/09/23 15:46 Last Admin: 09/10/23 22:31 Dose: 100 mls/hr Magnesium Hydroxide (Magnesium Hydroxide 2,400 Mg/30 Ml Cup) 2,400 mg PO DAILY PRN PRN Reason: Constipation Stop: 10/09/23 15:34 Multivitamins (Multivitamins, Thera 1 Each Tab) 1 each PO DAILY BINDU Last Admin: 09/10/23 09:50 Dose: 1 each Naloxone HCl (Naloxone 0.4 Mg/Ml 1 Ml Vial) 0.2 mg IV Q2M PRN PRN Reason: Opioid Reversal Stop: 10/09/23 15:34 Ondansetron HCl (Ondansetron 4 Mg/2 Ml Vial) 4 mg IVP Q8HR PRN PRN Reason: Nausea And Vomiting Senna/Docusate Sodium (Sennosides-Docusate Sodium 1 Each Tab) 2 each PO HS BINDU Stop: 10/09/23 21:01 Last Admin: 09/10/23 21:26 Dose: 1 each Social history: 1 pack a day for about 12 this document was 16 years ago. Alcohol rarely. Lives with Manuel Physical examination: VITAL SIGNS: 99.1, 73, 17, 11 8 x 70, 93% room air GENERAL: Sitting up in chair, feeling better EYES: Pupils equal. Conjunctiva normal. HEENT: External appearance of nose and ears normal, oral cavity grossly normal. NECK: JVD not raised; masses not palpable. HEART: First and second heart sounds are normal; no edema. LUNGS: Respiratory rate normal; clear to auscultation. ABDOMEN: Soft, nontender, liver spleen not palpable, no masses palpable. PSYCH: Alert and oriented x3; mood and affect normal. MUSCULOSKELETAL:No Clubbing/cyanosis;muscles-grossly intact. OA. Hemovac removed Dressing over incision site INVESTIGATIONS, reviewed in the clinical context: September 10: White count 12.2 hemoglobin 10.2 platelets 224 09/03/2023: White count 8.6 hemoglobin 14.4 platelets 318 sodium 140 potassium 4.9 creatinine 0.8 Assessment and plan: -Right total hip arthroplasty Aspirin for DVT prophylaxis. IV cefazolin for infection prophylaxis. Pain control -Acute postprocedure blood loss anemia expected from surgery IV Ferrlecit. 2 doses -Primary osteoarthritis Tylenol as needed -Nausea as a side effect of pain medications postprocedure: Better Antiemetics as needed Discussed with the patient. Increase activity. Thank you Dr. Rodriguez
[2023-09-11 04:05] VITALS: BP 124/71; PULSE 85; TEMP 98.8
[2023-09-11] MEDS: LACTATED RINGERS 1,000 ML IV SCH (06:04)
[2023-09-11] MEDS: SODIUM CHLORIDE 0.9% 1,000 ML IV SCH ×2 (08:41→08:42)
[2023-09-11] MEDS: MULTIVITAMINS, THERA 1 EACH TAB PO SCH (09:05)
[2023-09-11] MEDS: ASPIRIN 81 MG PO SCH (09:05)
--- NOTE | 2023-09-11 10:43 | P.DS ---
Providers Date of admission: 09/09/2023 Attending physician: Kana Rodriguez Consults: 09/09/23 15:33 Consult Physician Routine Consulting Provider: Jamil Azul Consult Reason/Comments: post op medical management Do you want consulting provider notified?: Yes Primary care physician: Macey Day [facility] Course: The patient is a very pleasant previously healthy 68-year-old female who was admitted under my care this past Thursday and underwent an uncomplicated total hip replacement. Following surgery she was transferred to the orthopedic floor. She was transitioned from IV to oral pain medications. She received 2 doses of postoperative antibiotics. She was hypotensive initially but that resolved with IV fluid. She was managed by internal medicine for parapatellar medical management. She worked with physical therapy. She was ultimately cleared for discharge home on postoperative day #2. Plan - Discharge Summary Discharge Rx Participant: No New Discharge Prescriptions: New Docusate [Colace] 100 mg PO BID 30 Days #60 capsule Ferrous Sulfate [Feosol] 325 mg PO BID #60 tab Aspirin 81 mg PO BID 30 Days #60 tab Omeprazole [PriLOSEC] 40 mg PO DAILY 30 Days #30 cap HYDROcodone/APAP 5-325MG [Hopewell 5-325] 1 - 2 tab PO Q6HR PRN #32 tab PRN Reason: Pain Ondansetron [Zofran] 4 mg PO Q8HR PRN #20 tab PRN Reason: Nausea Continue Krill Oil 500 mg PO DAILY Vitamin B-12 (Unknown Dose) 1 tab PO DAILY Cholecalciferol [Vitamin D3 (25 Mcg = 1000 Iu)] 25 mcg PO DAILY Multivit with Calcium,Iron,Min [Women's Multivitamin] 0.5 each PO DAILY No Action Turmeric (Unknown Dose) 1 tab PO DAILY Collagen Peptides (Unknown Dose) 1 dose PO DAILY Discharge Medication List Cholecalciferol [Vitamin D3 (25 Mcg = 1000 Iu)] 25 mcg PO DAILY 09/10/21 [History] Krill Oil 500 mg PO DAILY 09/10/21 [History] Collagen Peptides (Unknown Dose) 1 dose PO DAILY 09/03/23 [History] Multivit with Calcium,Iron,Min [Women's Multivitamin] 0.5 each PO DAILY 09/03/23 [History] Turmeric (Unknown Dose) 1 tab PO DAILY 09/03/23 [History] Vitamin B-12 (Unknown Dose) 1 tab PO DAILY 09/03/23 [History] Aspirin 81 mg PO BID 30 Days #60 tab 09/10/23 [Rx] Docusate [Colace] 100 mg PO BID 30 Days #60 capsule 09/10/23 [Rx] Ferrous Sulfate [Feosol] 325 mg PO BID #60 tab 09/10/23 [Rx] HYDROcodone/APAP 5-325MG [Hopewell 5-325] 1 - 2 tab PO Q6HR PRN #32 tab 09/10/23 [Rx] Omeprazole [PriLOSEC] 40 mg PO DAILY 30 Days #30 cap 09/10/23 [Rx] Ondansetron [Zofran] 4 mg PO Q8HR PRN #20 tab 09/11/23 [Rx] Follow up Appointment(s)/Referral(s): Macey Day MD [Primary Care Provider] - 1 Week Kana Rodriguez MD [Medical Doctor] - 09/21/23 2:35 pm Activity/Diet/Wound Care/Special Instructions: 1. Weight-bear as tolerated on your operative extremity unless instructed o therwise. Use a walker or other assistive device to ambulate. 2. Leave surgical dressing in place. If your dressing becomes saturated with blood, there is drainage, or the dressing becomes loose please contact the office. 3. It is okay to shower with your surgical dressing, but do not submerge in water (no hot tubs, bath's, swimming etc.) 4. Make sure to take her blood clot prevention medication as prescribed (aspirin, Eliquis, Xarelto, and Plavix are commonly prescribed medications for blood clot prevention) 5. While taking Hopewell or Percocet for pain make sure you're taking a stool sof tener (Colace) and drink lots of water. 6. Keep all follow-up appointments as scheduled. You will usually be seen in 1-2 weeks following surgery. 7. Please contact the office with any questions or concerns [phone] Discharge Disposition: HOME SELF-CARE
--- NOTE | 2023-09-11 19:40 | P.PN ---
Progress Note - Text Progress Note Date: 09/11/23 - Chief Complaint Right hip surgery - History of Present Illness This is a pleasant 68-year-old patient follows with Dr. Macey Day. Patient's had arthritis in the joints for some time. Progressively getting worse. Has tried conservative measures that were exhausted.. Finally decided to proceed for surgery.. Postprocedure patient is having some nausea. Some local pain is present. Hemovac in place. No chest pain or short of breath. Otherwise patient is rather good health. September 10: Some pain at the operative site. Hemovac was removed. Drop in hemoglobin. IV Ferrlecit ordered. Diet discussed. Did work with therapy. September 11: Patient received IV Ferrlecit. Some pain is present. Patient is small eater. Had her protein shake. Discussed with patient has been. Questions answered. Education reviewed Social history: 1 pack a day for about 12 this document was 16 years ago. Alcohol rarely. Lives with Manuel Physical examination: VITAL SIGNS: 98.8, 85, 17, 1 25 x 71, 92% room air GENERAL: Sitting up in chair, better EYES: Pupils equal. Conjunctiva normal. HEENT: External appearance of nose and ears normal, oral cavity grossly normal. NECK: JVD not raised; masses not palpable. HEART: First and second heart sounds are normal; no edema. LUNGS: Respiratory rate normal; clear to auscultation. ABDOMEN: Soft, nontender, liver spleen not palpable, no masses palpable. PSYCH: Alert and oriented x3; mood and affect normal. MUSCULOSKELETAL:No Clubbing/cyanosis;muscles-grossly intact. OA. Hemovac removed Dressing over incision site INVESTIGATIONS, reviewed in the clinical context: September 10: White count 12.2 hemoglobin 10.2 platelets 224 09/03/2023: White count 8.6 hemoglobin 14.4 platelets 318 sodium 140 potassium 4.9 creatinine 0.8 Assessment and plan: -Right total hip arthroplasty Aspirin for DVT prophylaxis. IV cefazolin for infection prophylaxis. Pain control -Acute postprocedure blood loss anemia expected from surgery IV Ferrlecit. 2 doses Oral iron -Primary osteoarthritis Tylenol as needed -Nausea as a side effect of pain medications postprocedure: Better Antiemetics as needed Discussed with the patient. And has been. Follow with PCP upon discharge. Thank you Dr. Rodriguez
== END 2023-09-11 13:11 | disposition home health service (06) | DRG 470 ==
LOC: OR 11:07 → 4SSUR 15:15 → OR 09-11 07:31 → 4SSUR 09-11 13:11
PROVIDERS: ADMIT Orthopaedic Surgery; ATTEND Orthopaedic Surgery
PROC: 0SR904A Replacement of Right Hip Joint with Ceramic on Polyethylene Synthetic Substitute, Uncemented, Open Approach (ICD-10-PCS; principal; 2023-09-09 13:00)
DX: M16.11 Unilateral primary osteoarthritis, right hip (principal); D62 Acute posthemorrhagic anemia; I95.9 Hypotension, unspecified; Z28.310 Unvaccinated for COVID-19; E78.5 Hyperlipidemia, unspecified; M81.0 Age-related osteoporosis without current pathological fracture; F41.9 Anxiety disorder, unspecified; Z79.899 Other long term (current) drug therapy; Z96.642 Presence of left artificial hip joint; Z87.891 Personal history of nicotine dependence; Z88.5 Allergy status to narcotic agent; Z88.0 Allergy status to penicillin
CPT/HCPCS: 73502; 85025